=== PATIENT | female | born 2000 | race Hispanic/Latino ===

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

== ENCOUNTER 2022-07-23 09:47 | Emergency (ER) | payer BC, MEDICAID, SELFPAY ==
[2022-07-23 09:53] VITALS: BP 135/83; PULSE 101; RESP 16; TEMP 36.7; O2SAT 99
--- NOTE | 2022-07-23 10:02 | ED.LOWEXIN ---
HPI - Extremity Injury (Lower) General Stated Complaint: ingrown toe nail History of Present Illness HPI Narrative: patient presents with pain along the lateral plantar side of her left foot. patient has been wearing shoes that were too narrow for her foot and thinks this is causing her pain. no imflammation to area no concern for infection no numbness or tingling no open areas and no deformity noted. patient has not taken anything for pain or discomfort . no pain at present. Related Data Home Medications Medication Instructions Recorded Confirmed drospirenone 3 mg-ethinyl 1 tablet PO DAILY 07/23/22 07/23/22 estradiol 0.03 mg tablet (Yoly) Allergies Allergy/AdvReac Type Severity Reaction Status Date / Time No Known Allergies Allergy Verified 07/23/22 10:02 Review of Systems Review of Systems: CONSTITUTIONAL: Denies fever, chills, or sweats. EYES: Denies visual changes, redness, or discharge. ENT: Denies rhinorrhea, congestion, sore throat, or otalgia. CARDIOVASCULAR: Denies chest pain, palpitations, or edema. RESPIRATORY: Denies cough or dyspnea. GASTROINTESTINAL: Denies abdominal pain, nausea, vomiting, or diarrhea. GENITOURINARY: Denies dysuria or hematuria. SKIN: Denies rash or itching. MUSCULOSKELETAL: Denies back pain, joint pain, or myalgia. NEUROLOGIC: Denies headache, numbness, or weakness. PSYCHIATRIC: Denies anxiety or depression. [facility] Past Medical History Medical History (Updated 07/23/22 @ 10:07 by BREANA Arenas) Acute right otitis media COVID-19 virus infection February 2021 Social History Social History Smoking status: Never smoker Substance use: never Living arrangements: with family Occupation/Education: student Comments At time of signature, agree with nursing past medical, surgical, social and family history. There is no relevant family history pertinent to the presenting complaint Exam Narrative: GENERAL: Well-appearing, well-nourished, and in no acute distress. HEAD: Normocephalic, atraumatic. EYES: PERRLA and EOMI. ENT: Nares clear, no rhinorrhea or epistaxis. Mucous membranes moist. NECK: Supple. CHEST: Clear to auscultation. No respiratory distress. HEART: Regular rate and rhythm. No murmur heard. Normal peripheral pulses. ABDOMEN: Soft, nontender, nondistended, normal active bowel sounds. EXTREMITIES: Normal range of motion. No edema.left foot SKIN INTACT. NORMAL DP PULSE, NORMAL CAP REFILL. NORMAL SENSATION. SKIN: Warm, dry, no rash. NEURO: No focal deficits. Alert and oriented x3. Lg Coma Scale Eye Opening: Spontaneous 4 [place] Coma Scale Motor: Obeys Commands 6 Lg Coma Scale Verbal: Oriented 5 Lg Coma Scale Total 15 Course Course Level of Care: Express Care Visit Vital Signs Vital signs: Vital Signs Temperature 36.7 C 07/23/22 09:53 Pulse Rate 101 H 07/23/22 09:53 Respiratory Rate 16 07/23/22 09:53 Blood Pressure 135/83 07/23/22 09:53 Pulse Oximetry 99 07/23/22 09:53 Oxygen Delivery Room Air 07/23/22 09:53 Temperature 36.7 C 07/23/22 09:53 Pulse Rate 101 H 07/23/22 09:53 Respiratory Rate 16 07/23/22 09:53 Blood Pressure 135/83 07/23/22 09:53 Pulse Oximetry 99 07/23/22 09:53 Oxygen Delivery Room Air 07/23/22 09:53 MDM - Extremity Injury (Lower) Differential Diagnosis Differential diagnosis: Likely ankle sprain and strain, acute internal derangement of knee, fracture of femur, fracture of hip, puncture wound of foot, fracture of toe and ankle fracture Discharge Plan Discharge Clinical Impression: Foot pain, left, Plantar fasciitis of left foot Patient Disposition: Home, Self-Care Condition: Stable Instructions: Plantar Fasciitis (ED), Plantar Fasciitis Exercises (ED) Additional Instructions: wear good fitting shoes tylenol or ibuprofen for pain and discomfort follow up with PCP for podiatry re
== END 2022-07-23 10:10 | disposition home or self-care (01) ==
PROVIDERS: Emergency Provider Nurse Practitioner Family
DX: M72.2 Plantar fascial fibromatosis (principal); Z86.16 Personal history of COVID-19
CPT/HCPCS: 99212; G0463